=== PATIENT | female | born 1975 | race Caucasian/White ===

== ENCOUNTER 2017-01-09 01:59 | Emergency (ER) | payer SELFPAY ==
[~2017-01-09] VITALS: Ht 152.4 cm; Wt 82.9 kg
[2017-01-09] MEDS ORDERED: MORPHINE SULFATE 4 MG/ML, 1ML IVPush PRN (02:30)
[2017-01-09] MEDS ORDERED: ONDANSETRON 2MG/ML, 2ML IVPush ONE (02:30)
[2017-01-09 02:50] LABS: HEMOGLOBIN 11.4 g/dL (11.7-16.4)
[2017-01-09 03:04] LABS: ASPARTATE AMINO TRANSFERASE 22 U/L (15-37); BLOOD UREA NITROGEN 10 mg/dL (7-18)
[2017-01-09 03:40] LABS: PATH.CAST-FLAG NONE SEEN; SPERM-FLAG NONE SEEN; SRC-FLAG NONE SEEN; XTAL-FLAG NONE SEEN; YLC-FLAG NONE SEEN
[2017-01-09 04:27] VITALS: BP 124/71
[2017-01-10] MEDS ORDERED: THROMBIN 5,000 UNIT VIAL TP ONE (15:01)
== END 2017-01-09 04:30 | disposition home or self-care (01) ==
LOC: ED 02:43
DX: R10.13 Epigastric pain (principal); R30.0 Dysuria
CPT/HCPCS: 36415; 74020; 76700; 80053; 81001; 83690; 85025; 87086; 99285

== ENCOUNTER → 2017-01-18 | Outpatient (CLI) | payer MEDICAID ==
[~2017-01-18] MED LIST: LOPE2CAP94 PO; OXYC1TAB7 PO
== END | disposition home or self-care (01) ==
LOC: WOUND 13:13
PROVIDERS: ATTEND Physician Assistant
DX: T81.89XD Other complications of procedures, not elsewhere classified, subsequent encounter (principal); I10 Essential (primary) hypertension; E11.69 Type 2 diabetes mellitus with other specified complication; Z85.048 Personal history of other malignant neoplasm of rectum, rectosigmoid junction, and anus; Z90.710 Acquired absence of both cervix and uterus; Z93.2 Ileostomy status; Y83.8 Other surgical procedures as the cause of abnormal reaction of the patient, or of later complication, without mention of misadventure at the time of the procedure
CPT/HCPCS: 99214

== ENCOUNTER → 2017-01-25 | Outpatient (CLI) | payer MEDICAID | END | disposition home or self-care (01) | LOC: WOUND 13:15 | PROVIDERS: ATTEND Physician Assistant | DX: T81.89XD Other complications of procedures, not elsewhere classified, subsequent encounter (principal); Z93.2 Ileostomy status; Z85.048 Personal history of other malignant neoplasm of rectum, rectosigmoid junction, and anus; Y83.8 Other surgical procedures as the cause of abnormal reaction of the patient, or of later complication, without mention of misadventure at the time of the procedure | CPT/HCPCS: 99213 ==